=== PATIENT | female | born 1955 | race Caucasian/White ===

== ENCOUNTER 2020-02-25 00:02 | Inpatient (IN) | payer BC, OTHER ==
[2020-02-25] MEDS ORDERED: Sodium Chloride 0.9% 10 ML Syringe FLUSH PRN (00:16)
[2020-02-25] MEDS ORDERED: Iopamidol 612 MG/ML 150 ML Bottle IV STA (00:40)
--- NOTE | 2020-02-25 00:40 | EDM.PDOC ---
ED HPI GENERAL MEDICAL PROBLEM - General Chief Complaint: Cardiovascular Problem Stated Complaint: MEDICAL [facility] Time Seen by Provider: 02/25/20 00:09 Source of Information: Reports: Patient History Limitations: Reports: No Limitations - History of Present Illness INITIAL COMMENTS - FREE TEXT/NARRATIVE: Patient presents by ambulance from home after falling due to being weak and off balance. Based on symptoms, her father, who lives at home with her called the ambulance tonight after she fell. On arrival paramedics noted that her blood pressure was in the high 70s systolic range and she seemed sleepy. She does not provide much useful history for her condition tonight although clinic notes from a visit to [facility] yesterday indicate that she is a pparently being treated for a UTI and she just had antibiotics changed from Augmentin to Cipro. For some reason not evident in the notes, the provider wanted to do a CT scan of some part of her body but there was a question of insurance coverage for it. The patient denies pain at this time but responses to all questions are slow. She took her tizanidine at bedtime tonight. Normal saline is running wide open on arrival and an additional IV site will be established and additional fluid bolus added. Onset: Gradual Location: Reports: Generalized Severity: Severe Improves with: Reports: None Worsens with: Reports: None Associated Symptoms: Reports: Confusion, Diaphoresis, Weakness. Denies: Fever/Chills, Nausea/Vomiting denies pain Pain Score (Numeric/FACES): 0 - Related Data Allergies Allergy/AdvReac Type Severity Reaction Status Date / Time Sulfa (Sulfonamide Allergy Hives Verified 02/25/20 00:22 Antibiotics) Home Meds: Home Meds Amitriptyline HCl 50 mg PO DAILY 07/04/13 [History] DULoxetine HCl [Cymbalta] 60 mg PO DAILY 07/04/13 [History] Meloxicam 15 mg PO DAILY 07/04/13 [History] metFORMIN HCl [Metformin HCl] 1,000 mg PO BID 07/04/13 [History] Aspirin [Adult Low Dose Aspirin EC] 81 mg PO DAILY 02/25/20 [History] Dulaglutide [Trulicity] 0.5 ml SQ WEEKLY 02/25/20 [History] FLUoxetine HCl [Prozac] 20 mg PO DAILY 02/25/20 [History] Famotidine 20 mg PO DAILY 02/25/20 [History] Losartan Potassium 100 mg PO DAILY 02/25/20 [History] Simvastatin [Zocor] 10 mg PO BEDTIME 02/25/20 [History] glipiZIDE [Glipizide ER] 10 mg PO DAILY 02/25/20 [History] ED ROS GENERAL - Review of Systems Review Of Systems: See Below Constitutional: Reports: Weakness, Diaphoresis. Denies: Fever HEENT: Reports: No Symptoms Respiratory: Reports: No Symptoms Cardiovascular: Reports: No Symptoms : Reports: No Symptoms Musculoskeletal: Reports: No Symptoms ED EXAM, GENERAL - Physical Exam Exam: See Below Exam Limited By: Altered Mental Status General Appearance: Obtunded Nose: Normal Inspection Throat/Mouth: Normal Inspection Head: Atraumatic Neck: Supple, Non-Tender Respiratory/Chest: Lungs Clear Cardiovascular: Regular Rate, Rhythm GI/Abdominal: Soft, Tender (Minor right abdominal tenderness on palpation.). No: Distended, Guarding, Rigid Neurological: Slow to Respond EKG INTERPRETATION EKG Date: 02/25/20 Time: 00:33 Rhythm: NSR Rate (Beats/Min): 85 [place]: Normal P-Wave: Present QRS: Normal ST-T: Normal QT: Normal Comparison: NA - No Prior EKG Course - Vital Signs Last Recorded V/S: Last Vital Signs Temp 35.0 C L 02/25/20 01:41 Pulse 91 02/25/20 02:13 Resp 16 02/25/20 02:13 BP 97/55 L 02/25/20 02:13 Pulse Ox 96 02/25/20 02:13 - Orders/Labs/Meds Orders: Active Orders 24 hr Category Date Time Status EKG Documentation Completion [RC] ASDIRECTED Care 02/25/20 00:19 Active CULTURE BLOOD [BC] Stat Lab 02/25/20 01:27 Ordered Ciprofloxacin in D5W [Cipro in D5W 400 MG/200 ML] 400 Med 02/25/20 02:04 Ordered mg Premix Bag 1 bag IV ONETIME Norepinephrine [Levophed] 4 mg Med 02/25/20 01:30 Active Dextrose 5% in Water 246 ml IV TITRATE Sodium Chloride 0.9% [Normal Saline] 1,000 ml Med 02/25/20 01:04 Ordered IV .BOLUS Sodium Chloride 0.9% [Saline Flush] Med 02/25/20 00:16 Active 10 ml FLUSH ASDIRECTED PRN Saline Lock Insert [OM.PC] Routine Oth 02/25/20 00:16 Ordered EKG 12 Lead [EK] Routine Ther 02/25/20 00:16 Ordered Medication Orders Sodium Chloride (Normal Saline) 1,000 mls @ 500 mls/hr IV .BOLUS ONE Stop: 02/25/20 03:03 Last Admin: 02/25/20 01:12 Dose: 500 mls/hr Documented by: KIMBERLY Norepinephrine Bitartrate 4 mg (/ Dextrose/Water) 250 mls @ 7.5 mls/hr IV TITRATE ANAND; Protocol Last Admin: 02/25/20 01:31 Dose: 2 mcg/min, 7.5 mls/hr Documented by: SHI Ciprofloxacin/Dextrose 400 mg/ (Premix) 200 mls @ 200 mls/hr IV ONETIME ONE Stop: 02/25/20 03:03 Last Admin: 02/25/20 02:19 Dose: 200 mls/hr Documented by: Sodium Chloride (Saline Flush) 10 ml FLUSH ASDIRECTED PRN PRN Reason: Keep Vein Open Last Admin: 02/25/20 00:36 Dose: 10 ml Documented by: SHI Labs: Laboratory Tests 02/25/20 02/25/20 02/25/20 Range/Units 00:16 00:29 00:30 WBC 16.1 H (4.5-11.0) K/uL RBC 3.59 (3.30-5.50) M/uL Hgb 10.6 L D (12.0-15.0) g/dL Hct 30.9 L (36.0-48.0) % MCV 86 (80-98) fL MCH 30 (27-31) pg MCHC 34 (32-36) % Plt Count 223 (150-400) K/uL Neut % (Auto) 84 H (36-66) % Lymph % (Auto) 4 L (24-44) % [place] % (Auto) 11 H (2-6) % Eos % (Auto) 0 L (2-4) % Baso % (Auto) 0 (0-1) % Sodium 125 L (140-148) mmol/L Potassium 4.8 (3.6-5.2) mmol/L Chloride 94 L (100-108) mmol/L Carbon Dioxide 19 L (21-32) mmol/L Anion Gap 16.8 H (5.0-14.0) mmol/L BUN 22 H (7-18) mg/dL Creatinine 1.4 H D (0.6-1.0) mg/dL Est Cr Clr Drug Dosing 40.52 mL/min Estimated GFR (MDRD) 38 L (>60) Glucose 437 H* (74-106) mg/dL Lactic Acid (0.4-2.0) mmol/L Calcium 8.4 L (8.5-10.1) mg/dL Total Bilirubin 0.7 D (0.2-1.0) mg/dL AST 8 L (15-37) U/L ALT 8 L (12-78) U/L Alkaline Phosphatase 89 (46-116) U/L Troponin I < 0.017 (0.000-0.056) ng/mL C-Reactive Protein > 25.00 H (0.0-0.3) mg/dL Total Protein 5.8 L (6.4-8.2) g/dL Albumin 2.1 L (3.4-5.0) g/dL Globulin 3.7 H (2.3-3.5) g/dL Albumin/Globulin Ratio 0.6 L (1.2-2.2) Urine Color Yellow (YELLOW) Urine Appearance Clear (CLEAR) Urine pH 5.5 (5.0-8.0) Ur Specific [place] 1.015 (1.008-1.030) Urine Protein 100 H (NEGATIVE) mg/dL Urine Glucose (UA) 500 H (NEGATIVE) mg/dL Urine Ketones 80 H (NEGATIVE) mg/dL Urine Occult Blood Moderate H (NEGATIVE) Urine Nitrite Negative (NEGATIVE) Urine Bilirubin Small H (NEGATIVE) Urine Urobilinogen 0.2 (0.2-1.0) EU/dL Ur Leukocyte Esterase Small H (NEGATIVE) Urine RBC 0-5 (0-5) Urine WBC Not seen (0-5) Ur Epithelial Cells Rare Amorphous Sediment Rare Urine Bacteria Not seen Urine Mucus Not seen Urine Opiates Screen (NEGATIVE) Ur Oxycodone Screen (NEGATIVE) Urine Methadone Screen (NEGATIVE) Ur Propoxyphene Screen (NEGATIVE) Ur Barbiturates Screen (NEGATIVE) Ur Tricyclics Screen (NEGATIVE) Ur Phencyclidine Scrn (NEGATIVE) Ur Amphetamine Screen (NEGATIVE) U Methamphetamines Scrn (NEGATIVE) Urine MDMA Screen (NEGATIVE) U Benzodiazepines Scrn (NEGATIVE) U Cocaine Metab Screen (NEGATIVE) U Marijuana (THC) Screen (NEGATIVE) 02/25/20 02/25/20 Range/Units 00:30 00:30 WBC (4.5-11.0) K/uL RBC (3.30-5.50) M/uL Hgb (12.0-15.0) g/dL Hct (36.0-48.0) % MCV (80-98) fL MCH (27-31) pg MCHC (32-36) % Plt Count (150-400) K/uL Neut % (Auto) (36-66) % Lymph % (Auto) (24-44) % [place] % (Auto) (2-6) % Eos % (Auto) (2-4) % Baso % (Auto) (0-1) % Sodium (140-148) mmol/L Potassium (3.6-5.2) mmol/L Chloride (100-108) mmol/L Carbon Dioxide (21-32) mmol/L Anion Gap (5.0-14.0) mmol/L BUN (7-18) mg/dL Creatinine (0.6-1.0) mg/dL Est Cr Clr Drug Dosing mL/min Estimated GFR (MDRD) (>60) Glucose (74-106) mg/dL Lactic Acid 1.6 (0.4-2.0) mmol/L Calcium (8.5-10.1) mg/dL Total Bilirubin (0.2-1.0) mg/dL AST (15-37) U/L ALT (12-78) U/L Alkaline Phosphatase (46-116) U/L Troponin I (0.000-0.056) ng/mL C-Reactive Protein (0.0-0.3) mg/dL Total Protein (6.4-8.2) g/dL Albumin (3.4-5.0) g/dL Globulin (2.3-3.5) g/dL Albumin/Globulin Ratio (1.2-2.2) Urine Color (YELLOW) Urine Appearance (CLEAR) Urine pH (5.0-8.0) Ur Specific [place] (1.008-1.030) Urine Protein (NEGATIVE) mg/dL Urine Glucose (UA) (NEGATIVE) mg/dL Urine Ketones (NEGATIVE) mg/dL Urine Occult Blood (NEGATIVE) Urine Nitrite (NEGATIVE) Urine Bilirubin (NEGATIVE) Urine Urobilinogen (0.2-1.0) EU/dL Ur Leukocyte Esterase (NEGATIVE) Urine RBC (0-5) Urine WBC (0-5) Ur Epithelial Cells Amorphous Sediment Urine Bacteria Urine Mucus Urine Opiates Screen Negative (NEGATIVE) Ur Oxycodone Screen Negative (NEGATIVE) Urine Methadone Screen Negative (NEGATIVE) Ur Propoxyphene Screen Negative (NEGATIVE) Ur Barbiturates Screen Negative (NEGATIVE) Ur Tricyclics Screen Presumptive positive H (NEGATIVE) Ur Phencyclidine Scrn Negative (NEGATIVE) Ur Amphetamine Screen Presumptive positive H (NEGATIVE) U Methamphetamines Scrn Negative (NEGATIVE) Urine MDMA Screen Negative (NEGATIVE) U Benzodiazepines Scrn Negative (NEGATIVE) U Cocaine Metab Screen Negative (NEGATIVE) U Marijuana (THC) Screen Negative (NEGATIVE) Meds: Medications Generic Name Dose Route Start Last Admin Trade Name Freq PRN Reason Stop Dose Admin Sodium Chloride 1,000 mls @ 500 mls/hr 02/25/20 01:04 02/25/20 01:12 Normal Saline IV 02/25/20 03:03 500 mls/hr .BOLUS ONE Administration Norepinephrine Bitartrate 4 mg 250 mls @ 7.5 mls/hr 02/25/20 01:30 02/25/20 01:31 / Dextrose/Water IV 2 mcg/min TITRATE ANAND 7.5 mls/hr Administration Protocol 2 MCG/MIN Ciprofloxacin/Dextrose 400 mg/ 200 mls @ 200 mls/hr 02/25/20 02:04 02/25/20 02:19 Premix IV 02/25/20 03:03 200 mls/hr ONETIME ONE Administration Sodium Chloride 10 ml 02/25/20 00:16 02/25/20 00:36 Saline Flush FLUSH 10 ml ASDIRECTED PRN Administration Keep Vein Open Discontinued Medications Generic Name Dose Route Start Last Admin Trade Name Freq PRN Reason Stop Dose Admin Norepinephrine Bitartrate 8 mg 258 mls @ 3.87 mls/hr 02/25/20 01:30 / Dextrose/Water IV TITRATE ANAND Protocol 2 MCG/MIN Insulin Human Regular 10 unit 02/25/20 01:28 02/25/20 01:38 Humulin R IVPUSH 02/25/20 01:29 10 units ONETIME ONE Administration Iopamidol 150 ml 02/25/20 00:40 02/25/20 00:48 Isovue-300 (61%) IV 02/25/20 00:41 150 ml . DIRECTED STA Administration - Re-Assessments/Exams Free Text/Narrative Re-Assessment/Exam: 02/25/20 00:39 It is not clear at this time what is causing her collection of symptoms. We have lab tests from [facility] yesterday. In the visit, a reason for visit involved abdominal pain back pain and generalized malaise. This could be sepsis. It could be some sort of intra-abdominal or intrathoracic phenomenon. 02/25/20 01:34 The patient continues to be somnolent but will answer questions with a 1 or 2 word answer. On re-examination now she seems to describe some right-sided abdominal discomfort although her pain response is not very noticeable. Blood pressure has decreased again into the upper 80s systolic range. We will initiate norepinephrine and continue fluid replacement. Her glucose is over 400 and she will be given 10 units of regular insulin IV. Blood cultures will be obtained. Despite her blood pressure being at its level, her heart rate has never consistently gone above the low to mid 80s. Additionally it is noted that her sodium is 125. 02/25/20 01:38 02/25/20 02:48 Norepinephrine was initiated and her systolic pressure quickly vira to 110 mmHg. After 15 minutes, we stopped the norepinephrine and pressure decreased into the high 90s systolic however the mean arterial pressure was still acceptable. The patient is slightly more alert now than at the beginning of our visit. When asked, the patient stated that she thought her somnolence was from her nighttime medications but does not specify if she took extra medications or not. CT scan was largely unremarkable except for some stranding around the proximal right ureter and kidney suggesting early pyelonephritis. No other alarming findings were found in the chest, abdomen, pelvis. Cipro 400 mg IV will be administered. The patient will be admitted here for further care. 02/25/20 02:51 Departure - Departure Time of Disposition: 02:50 Disposition: Admitted As Inpatient 68 Clinical Impression: Hyponatremia, Somnolence UTI (urinary tract infection) Qualifiers: Urinary tract infection type: acute cystitis Hematuria presence: without hematuria Qualified Code(s): N30.00 - Acute cystitis without hematuria Diabetes mellitus with hyperglycemia Qualifiers: Diabetes mellitus type: type 2 Diabetes mellitus termite treater insulin use: without termite treater use Qualified Code(s): E11.65 - Type 2 diabetes mellitus with hyperglycemia Hypotension Qualifiers: Hypotension type: unspecified hypotension type Qualified Code(s): I95.9 - Hypotension, unspecified Referrals: PCP,None [Primary Care Provider] - Forms: ED Department Discharge Sepsis Event Note (ED) - Evaluation Sepsis Screening Result: No Definite Risk - Focused Exam Vital Signs: Vital Signs Temp Pulse Resp BP Pulse Ox 02/25/20 02:13 91 16 97/55 L 96 02/25/20 01:41 35.0 C L 85 19 94/57 L 98 02/25/20 00:58 35.6 C L 82 15 97/58 L 95 02/25/20 00:42 83 18 85/51 L 96 02/25/20 00:29 85 19 90/54 L 98 02/25/20 00:14 35.7 C L 88 22 H 80/51 L 98 02/25/20 00:09 35.7 C L 92 79/46 L 98 02/25/20 00:05 93 15 79/46 L 98 - My Orders Last 24 Hours: My Active Orders 02/25/20 00:16 Sodium Chloride 0.9% [Saline Flush] 10 ml FLUSH ASDIRECTED PRN Saline Lock Insert [OM.PC] Routine EKG 12 Lead [EK] Routine 02/25/20 00:19 EKG Documentation Completion [RC] ASDIRECTED 02/25/20 01:04 Sodium Chloride 0.9% [Normal Saline] 1,000 ml IV .BOLUS 02/25/20 01:27 CULTURE BLOOD [BC] Stat 02/25/20 01:30 Norepinephrine [Levophed] 4 mg Dextrose 5% in Water 246 ml IV TITRATE 02/25/20 02:04 Ciprofloxacin in D5W [Cipro in D5W 400 MG/200 ML] 400 mg Premix Bag 1 bag IV ONETIME - Assessment/Plan Last 24 Hours: My Active Orders 02/25/20 00:16 Sodium Chloride 0.9% [Saline Flush] 10 ml FLUSH ASDIRECTED PRN Saline Lock Insert [OM.PC] Routine EKG 12 Lead [EK] Routine 02/25/20 00:19 EKG Documentation Completion [RC] ASDIRECTED 02/25/20 01:04 Sodium Chloride 0.9% [Normal Saline] 1,000 ml IV .BOLUS 02/25/20 01:27 CULTURE BLOOD [BC] Stat 02/25/20 01:30 Norepinephrine [Levophed] 4 mg Dextrose 5% in Water 246 ml IV TITRATE 02/25/20 02:04 Ciprofloxacin in D5W [Cipro in D5W 400 MG/200 ML] 400 mg Premix Bag 1 bag IV ONETIME
[2020-02-25] MEDS ORDERED: Sodium Chloride 0.9% 1,000 ML IV ONE (01:04)
[2020-02-25] MEDS ORDERED: Insulin Regular, Human 100 Units/ML 3 ML Vial IVPUSH ONE (01:28)
[2020-02-25] MEDS ORDERED: Norepinephrine 8 MG in Dextrose 5% in Water 250 ML IV SCH ×2 (01:30)
[2020-02-25] MEDS ORDERED: Norepinephrine 4 MG in Dextrose 5% in Water 246 ML IV SCH ×2 (01:30)
--- NOTE | 2020-02-25 01:44 | CRLCT ---
INDICATION: Hypotensive, obtunded. TECHNIQUE: CT chest, abdomen and pelvis acquired with 150 cc Isovue-300 intravenous contrast. COMPARISON: Abdomen and pelvis CT 07/04/2013 FINDINGS: CHEST: Mediastinum and beatriz: Thyroid unremarkable. Thoracic aorta normal in caliber with mild atherosclerotic calcification. Trace pericardial fluid. No enlarged mediastinal lymph nodes. Lungs and pleura: No pleural effusion or pneumothorax. Minimal dependent atelectasis. Chest wall and axilla: No mass or adenopathy. Bones: No suspicious bone lesions. Unremarkable for age. ABDOMEN AND PELVIS: Liver: Normal in contour with focal fat adjacent to the falciform ligament. Gallbladder and bile ducts: Unremarkable. Pancreas: Unremarkable. Spleen: Unremarkable. Adrenal glands: Unremarkable. Kidneys: Symmetric renal enhancement with some urothelial thickening questioned bilaterally as well as mild fat stranding surrounding the right ureter (2, 138). GI tract: The stomach is unremarkable. No dilated loops of large or small intestine. Vascular structures: Unremarkable. Pelvic Organs: Status post hysterectomy. Bladder minimally distended. Bones: No suspicious bone lesions. Unremarkable for age. IMPRESSION: 1. Bilateral urothelial thickening with some fat stranding surrounding the right ureter. This is nonspecific but can be seen in infection/ureteritis. 2. No dilated loops of large or small intestine. 3. No acute thoracic process seen. Please note that all CT scans at this facility use dose modulation, iterative reconstruction, and/or weight-based dosing when appropriate to reduce radiation dose to as low as reasonably achievable. Dictated by Bill Ott MD @ Feb 25 2020 1:31AM Signed by Dr. Bill Ott @ Feb 25 2020 1:43AM
[2020-02-25] MEDS ORDERED: Ciprofloxacin in D5W 400 MG in Premix Bag 1 BAG IV ONE ×2 (02:04)
--- NOTE | 2020-02-25 03:07 | PCM.HP.2 ---
H&P History of Present Illness - General Date of Service: 02/25/20 Admit Problem/Dx: Admission Diagnosis/Problem Admission Diagnosis/Problem Pyelonephritis Source of Information: Patient, EMS Notes Reviewed, Old Records, Provider, RN History Limitations: Reports: Altered Mental Status - History of Present Illness Initial Comments - Free Text/Narative: chief complaint: weakness, fall at home. This is a 64 year old female present to the ER via EMS for fall at home and weak ness. She was found to have a low blood pressure with a systolic blood pressure of 70's. and very weak and lethargic. Mrs. Remington colbert has been sick with a bladder infection for the past few days. filemon has been taking her medications. last meal at noon. reports lives with her and Dad in [facility]. Onset of Symptoms: Reports: Gradual Duration of Symptoms: Reports: Day(s): Location: Reports: Generalized (weakness) Severity: Severe Improves with: Reports: None Worsens with: Reports: None Context: Reports: Other (currently has a urinary tract infection) Associated Symptoms: Reports: Loss of Appetite (last meal at noon on 02-24-2020), Malaise, Weakness (fall at home ) denies pain Pain Score (Numeric/FACES): 0 - Related Data Allergies/Adverse Reactions: Allergies Allergy/AdvReac Type Severity Reaction Status Date / Time Sulfa (Sulfonamide Allergy Hives Verified 02/25/20 00:22 Antibiotics) Home Medications: Home Meds Amitriptyline HCl 50 mg PO BEDTIME 07/04/13 [History] DULoxetine HCl [Cymbalta] 60 mg PO BEDTIME 07/04/13 [History] Meloxicam 15 mg PO DAILY 07/04/13 [History] metFORMIN HCl [Metformin HCl] 1,000 mg PO BID 07/04/13 [History] Aspirin [Adult Low Dose Aspirin EC] 81 mg PO DAILY 02/25/20 [History] Dulaglutide [Trulicity] 0.5 ml SQ WEEKLY 02/25/20 [History] FLUoxetine HCl [Prozac] 20 mg PO DAILY 02/25/20 [History] Famotidine 20 mg PO DAILY 02/25/20 [History] Losartan Potassium 100 mg PO DAILY 02/25/20 [History] Simvastatin [Zocor] 10 mg PO BEDTIME 02/25/20 [History] glipiZIDE [Glipizide ER] 10 mg PO DAILY 02/25/20 [History] Past Medical History HEENT History: Reports: Impaired Vision, Other (See Below) Other HEENT History: glasses Cardiovascular History: Reports: Hypertension Genitourinary History: Reports: UTI, Recurrent INSERTER History: Reports: Endocrine/Metabolic History: Reports: Diabetes, Type II, Obesity/BMI 30+ - Infectious Disease History Infectious Disease History: Reports: Measles - Past Surgical History Female Surgical History: Reports: Section, Hysterectomy Social & Family History - Tobacco Use Smoking Status *Q: Never Smoker - Caffeine Use Caffeine Use: Reports: Soda - Recreational Drug Use Recreational Drug Use: No - Living Situation & Occupation Living situation: Reports: (lives with and Dad in [facility]) H&P Review of Systems - Review of Systems: Review Of Systems: See Below General: Reports: Weakness, Fatigue HEENT: Reports: Glasses Pulmonary: Reports: No Symptoms Cardiovascular: Reports: No Symptoms Gastrointestinal: Reports: No Symptoms Genitourinary: Reports: No Symptoms Musculoskeletal: Reports: Back Pain Skin: Reports: Lesions (red dry circular rash noted to upper back) Psychiatric: Reports: No Symptoms Neurological: Reports: Weakness Hematologic/Lymphatic: Reports: No Symptoms Immunologic: Reports: No Symptoms Exam - Exam Exam: See Below - Vital Signs Vital Signs: Last Vital Signs Temp 35.0 C L 02/25/20 01:41 Pulse 91 02/25/20 02:13 Resp 16 02/25/20 02:13 BP 97/55 L 02/25/20 02:13 Pulse Ox 96 02/25/20 02:13 Weight: 90.718 kg - Exam Quality Assessment: DVT Prophylaxis, Skin Breakdown General: Cooperative, Mild Distress, Sedated HEENT: PERRLA, Conjunctiva Clear, Hearing Intact, Glasses, Other (mouth and tongue is dry) Neck: Supple, Trachea Midline Lungs: Clear to Auscultation, Normal Respiratory Effort Cardiovascular: Regular Rate, Regular Rhythm, Normal S1, Normal S2 GI/Abdominal Exam: Normal Bowel Sounds, Soft, Non-Tender, No Distention (Female) Exam: Deferred Rectal (Female) Exam: Deferred Back Exam: Full Range of Motion, Other (low back pain, rash noted to upper back) Extremities: Normal Inspection, Normal Range of Motion, Normal Capillary Refill Skin: Warm, Dry, Intact, Rash (upper back-dry circular lesions noted. no discharger) Neurological: Reflexes Equal Bilateral, Strength Equal Bilateral, Normal Speech Neuro Extensive - Mental Status: Alert, Oriented x3 Psychiatric: Other (awakens to name and gentle shake of shoulder. appear tired) Physical Exam Comments:: 64 year old female appears older than stated age. frail - Patient Data Lab Results Last 24 hrs: Laboratory Results - last 24 hr 02/25/20 02/25/20 02/25/20 Range/Units 00:16 00:29 00:30 WBC 16.1 H (4.5-11.0) K/uL RBC 3.59 (3.30-5.50) M/uL Hgb 10.6 L D (12.0-15.0) g/dL Hct 30.9 L (36.0-48.0) % MCV 86 (80-98) fL MCH 30 (27-31) pg MCHC 34 (32-36) % Plt Count 223 (150-400) K/uL Neut % (Auto) 84 H (36-66) % Lymph % (Auto) 4 L (24-44) % [place] % (Auto) 11 H (2-6) % Eos % (Auto) 0 L (2-4) % Baso % (Auto) 0 (0-1) % Sodium 125 L (140-148) mmol/L Potassium 4.8 (3.6-5.2) mmol/L Chloride 94 L (100-108) mmol/L Carbon Dioxide 19 L (21-32) mmol/L Anion Gap 16.8 H (5.0-14.0) mmol/L BUN 22 H (7-18) mg/dL Creatinine 1.4 H D (0.6-1.0) mg/dL Est Cr Clr Drug Dosing 40.52 mL/min Estimated GFR (MDRD) 38 L (>60) Glucose 437 H* (74-106) mg/dL Lactic Acid (0.4-2.0) mmol/L Calcium 8.4 L (8.5-10.1) mg/dL Total Bilirubin 0.7 D (0.2-1.0) mg/dL AST 8 L (15-37) U/L ALT 8 L (12-78) U/L Alkaline Phosphatase 89 (46-116) U/L Troponin I < 0.017 (0.000-0.056) ng/mL C-Reactive Protein > 25.00 H (0.0-0.3) mg/dL Total Protein 5.8 L (6.4-8.2) g/dL Albumin 2.1 L (3.4-5.0) g/dL Globulin 3.7 H (2.3-3.5) g/dL Albumin/Globulin Ratio 0.6 L (1.2-2.2) Urine Color Yellow (YELLOW) Urine Appearance Clear (CLEAR) Urine pH 5.5 (5.0-8.0) Ur Specific [place] 1.015 (1.008-1.030) Urine Protein 100 H (NEGATIVE) mg/dL Urine Glucose (UA) 500 H (NEGATIVE) mg/dL Urine Ketones 80 H (NEGATIVE) mg/dL Urine Occult Blood Moderate H (NEGATIVE) Urine Nitrite Negative (NEGATIVE) Urine Bilirubin Small H (NEGATIVE) Urine Urobilinogen 0.2 (0.2-1.0) EU/dL Ur Leukocyte Esterase Small H (NEGATIVE) Urine RBC 0-5 (0-5) Urine WBC Not seen (0-5) Ur Epithelial Cells Rare Amorphous Sediment Rare Urine Bacteria Not seen Urine Mucus Not seen Urine Opiates Screen (NEGATIVE) Ur Oxycodone Screen (NEGATIVE) Urine Methadone Screen (NEGATIVE) Ur Propoxyphene Screen (NEGATIVE) Ur Barbiturates Screen (NEGATIVE) Ur Tricyclics Screen (NEGATIVE) Ur Phencyclidine Scrn (NEGATIVE) Ur Amphetamine Screen (NEGATIVE) U Methamphetamines Scrn (NEGATIVE) Urine MDMA Screen (NEGATIVE) U Benzodiazepines Scrn (NEGATIVE) U Cocaine Metab Screen (NEGATIVE) U Marijuana (THC) Screen (NEGATIVE) 02/25/20 02/25/20 Range/Units 00:30 00:30 WBC (4.5-11.0) K/uL RBC (3.30-5.50) M/uL Hgb (12.0-15.0) g/dL Hct (36.0-48.0) % MCV (80-98) fL MCH (27-31) pg MCHC (32-36) % Plt Count (150-400) K/uL Neut % (Auto) (36-66) % Lymph % (Auto) (24-44) % [place] % (Auto) (2-6) % Eos % (Auto) (2-4) % Baso % (Auto) (0-1) % Sodium (140-148) mmol/L Potassium (3.6-5.2) mmol/L Chloride (100-108) mmol/L Carbon Dioxide (21-32) mmol/L Anion Gap (5.0-14.0) mmol/L BUN (7-18) mg/dL Creatinine (0.6-1.0) mg/dL Est Cr Clr Drug Dosing mL/min Estimated GFR (MDRD) (>60) Glucose (74-106) mg/dL Lactic Acid 1.6 (0.4-2.0) mmol/L Calcium (8.5-10.1) mg/dL Total Bilirubin (0.2-1.0) mg/dL AST (15-37) U/L ALT (12-78) U/L Alkaline Phosphatase (46-116) U/L Troponin I (0.000-0.056) ng/mL C-Reactive Protein (0.0-0.3) mg/dL Total Protein (6.4-8.2) g/dL Albumin (3.4-5.0) g/dL Globulin (2.3-3.5) g/dL Albumin/Globulin Ratio (1.2-2.2) Urine Color (YELLOW) Urine Appearance (CLEAR) Urine pH (5.0-8.0) Ur Specific [place] (1.008-1.030) Urine Protein (NEGATIVE) mg/dL Urine Glucose (UA) (NEGATIVE) mg/dL Urine Ketones (NEGATIVE) mg/dL Urine Occult Blood (NEGATIVE) Urine Nitrite (NEGATIVE) Urine Bilirubin (NEGATIVE) Urine Urobilinogen (0.2-1.0) EU/dL Ur Leukocyte Esterase (NEGATIVE) Urine RBC (0-5) Urine WBC (0-5) Ur Epithelial Cells Amorphous Sediment Urine Bacteria Urine Mucus Urine Opiates Screen Negative (NEGATIVE) Ur Oxycodone Screen Negative (NEGATIVE) Urine Methadone Screen Negative (NEGATIVE) Ur Propoxyphene Screen Negative (NEGATIVE) Ur Barbiturates Screen Negative (NEGATIVE) Ur Tricyclics Screen Presumptive positive H (NEGATIVE) Ur Phencyclidine Scrn Negative (NEGATIVE) Ur Amphetamine Screen Presumptive positive H (NEGATIVE) U Methamphetamines Scrn Negative (NEGATIVE) Urine MDMA Screen Negative (NEGATIVE) U Benzodiazepines Scrn Negative (NEGATIVE) U Cocaine Metab Screen Negative (NEGATIVE) U Marijuana (THC) Screen Negative (NEGATIVE) Result Diagrams: 02/25/20 00:16 02/25/20 00:29 Sepsis Event Note - Evaluation Sepsis Screening Result: No Definite Risk - Focused Exam Vital Signs: Vital Signs Temp Pulse Resp BP Pulse Ox 02/25/20 02:13 91 16 97/55 L 96 02/25/20 01:41 35.0 C L 85 19 94/57 L 98 02/25/20 00:58 35.6 C L 82 15 97/58 L 95 02/25/20 00:42 83 18 85/51 L 96 02/25/20 00:29 85 19 90/54 L 98 02/25/20 00:14 35.7 C L 88 22 H 80/51 L 98 02/25/20 00:09 35.7 C L 92 79/46 L 98 02/25/20 00:05 93 15 79/46 L 98 - Problem List (1) UTI (urinary tract infection) SNOMED Code(s): 25169839 ICD Code: N39.0 - URINARY TRACT INFECTION, SITE NOT SPECIFIED Status: Acute Priority: High Current Visit: Yes Qualifiers: Urinary tract infection type: acute cystitis Hematuria presence: without hematuria Qualified Code(s): N30.00 - Acute cystitis without hematuria (2) Pyelonephritis SNOMED Code(s): 99775128 ICD Code: N12 - TUBULO-INTERSTITIAL NEPHRITIS, NOT SPCF ACUTE OR CHRONIC Status: Acute Priority: High Current Visit: Yes (3) Diabetes mellitus with hyperglycemia SNOMED Code(s): 84775241, 877457075 ICD Code: E11.65 - TYPE 2 DIABETES MELLITUS WITH HYPERGLYCEMIA Status: Acute Priority: High Current Visit: Yes Qualifiers: Diabetes mellitus type: type 2 Diabetes mellitus financial services education consultant insulin use: without financial services education consultant use Qualified Code(s): E11.65 - Type 2 diabetes mellitus with hyperglycemia (4) Hyponatremia SNOMED Code(s): 93268222 ICD Code: E87.1 - HYPO-OSMOLALITY AND HYPONATREMIA Status: Acute Priority: High Current Visit: Yes Problem List Initiated/Reviewed/Updated: Yes Orders Last 24hrs: Active Orders 24 hr Category Date Time Status Patient Status Manage Transfer [TRANSFER] Routine ADT 02/25/20 02:54 Active EKG Documentation Completion [RC] ASDIRECTED Care 02/25/20 00:19 Active CULTURE BLOOD [BC] Stat Lab 02/25/20 01:30 Received Ciprofloxacin in D5W [Cipro in D5W 400 MG/200 ML] 400 Med 02/25/20 02:04 Active mg Premix Bag 1 bag IV ONETIME Norepinephrine [Levophed] 4 mg Med 02/25/20 01:30 Active Dextrose 5% in Water 246 ml IV TITRATE Sodium Chloride 0.9% [Normal Saline] 1,000 ml Med 02/25/20 01:04 Active IV .BOLUS Sodium Chloride 0.9% [Saline Flush] Med 02/25/20 00:16 Active 10 ml FLUSH ASDIRECTED PRN Saline Lock Insert [OM.PC] Routine Oth 02/25/20 00:16 Ordered Resuscitation Status Routine Resus Stat 02/25/20 02:55 Ordered EKG 12 Lead [EK] Routine Ther 02/25/20 00:16 Ordered Medication Orders Sodium Chloride (Normal Saline) 1,000 mls @ 500 mls/hr IV .BOLUS ONE Stop: 02/25/20 03:03 Last Admin: 02/25/20 01:12 Dose: 500 mls/hr Documented by: KIMBERLY Norepinephrine Bitartrate 4 mg (/ Dextrose/Water) 250 mls @ 7.5 mls/hr IV TITRATE ANAND; Protocol Last Admin: 02/25/20 01:31 Dose: 2 mcg/min, 7.5 mls/hr Documented by: SHI Ciprofloxacin/Dextrose 400 mg/ (Premix) 200 mls @ 200 mls/hr IV ONETIME ONE Stop: 02/25/20 03:03 Last Admin: 02/25/20 02:19 Dose: 200 mls/hr Documented by: SAMMZMEL Sodium Chloride (Saline Flush) 10 ml FLUSH ASDIRECTED PRN PRN Reason: Keep Vein Open Last Admin: 02/25/20 00:36 Dose: 10 ml Documented by: SHI Assessment/Plan Comment:: ASSESSMENT / PLAN Patient presents by ambulance from home after falling due to being weak and off balance. Based on symptoms, her father, who lives at home with her called the ambulance tonight after she fell. On arrival paramedics noted that her blood pressure was in the high 70s systolic range and she seemed sleepy. She does not provide much useful history for her condition tonight although clinic notes from a visit to [facility] yesterday indicate that she is apparently being treated for a UTI and she just had antibiotics changed from Augmentin to Cipro. For some reason not evident in the notes, the provider wanted to do a CT scan of some part of her body but there was a question of insurance coverage for it. The patient denies pain at this time but responses to all questions are slow. She took her tizanidine at bedtime tonight. Normal saline is running wide open on arrival and an additional IV site will be established and additional fluid bolus added. ER Course It is not clear at this time what is causing her collection of symptoms. We have lab tests from [facility] yesterday. In the visit, a reason for visit involved abdominal pain back pain and generalized malaise. This could be sepsis. It could be some sort of intra-abdominal or intrathoracic phenomenon. 02/25/20 01:34 The patient continues to be somnolent but will answer questions with a 1 or 2 word answer. On re-examination now she seems to describe some right-sided abdominal discomfort although her pain response is not very noticeable. Blood pressure has decreased again into the upper 80s systolic range. We will initiate norepinephrine and continue fluid replacement. Her glucose is over 400 and she will be given 10 units of regular insulin IV. Blood cultures will be obtained. Despite her blood pressure being at its level, her heart rate has never consistently gone above the low to mid 80s. Additionally it is noted that her sodium is 125. 02/25/20 02:48 Norepinephrine was initiated and her systolic pressure quickly vira to 110 mmHg. After 15 minutes, we stopped the norepinephrine and pressure decreased into the high 90s systolic however the mean arterial pressure was still acceptable. The patient is slightly more alert now than at the beginning of our visit. When asked, the patient stated that she thought her somnolence was from her nighttime medications but does not specify if she took extra medications or not. CT scan was largely unremarkable except for some stranding around the proximal right ureter and kidney suggesting early pyelonephritis. No other alarming findings were found in the chest, abdomen, pelvis. Cipro 400 mg IV will be administered. The patient will be admitted here for further care. URINARY TRACT INFECTION-with early pyelonephritis -Admit to [address] [place] [address] for further monitoring -IV Fluids for rehydration NS 125 mL per hour. -IV Antibiotic; Cipro 400mg IV every 12 hours -Tylenol, Motrin or Oxycodone for pain control -Advise to notify nurses of any fever or worsen pain -blood cultures x2 pending -urine culture pending -And a.m. labs: CBC, BMP Diabetes Type 2- with hyperglycemia, blood glucose 437- given IV regular insulin 10 units. -consistent carb diet -Novolog insulin per medium dose sliding scale coverage -blood glucose monitoring before meals and at bedtime Hyponatremia -IV fluids -BMP in am Maintenance issues -Orders home meds: on hold -Nutrition: consistent carb diet -Rollins catheter not indicated at this time -DVT: Lovenox 40 mg sub cut -PPI; IV Protonix 40mg daily CODE STATUS: FULL Admission status: Admit to [address] [place] [address] Admission justification. This patient will be admitted for inpatient services and is medically appropriate meeting medical necessity for inpatient admission as outlined in my documentation. I reasonably expect the patient will require inpatient services that span. Time over 2 midnights. I reasonably expect this patient to be discharged or transferred within 96 hours after admission to the critical access hospital. Disposition: home Primary care provider- [facility]. Hospitalist: Dr. Robertson - Mortality Measure Prognosis:: Good
[2020-02-25] MEDS ORDERED: LORazepam 2 MG/ML SDV IV PRN (03:39)
[2020-02-25] MEDS ORDERED: Morphine 2 MG/ML SYRINGE IVPUSH PRN (03:39)
[2020-02-25] MEDS ORDERED: Bisacodyl 5 MG Tab PO PRN (03:39)
[2020-02-25] MEDS ORDERED: Sodium Chloride 0.9% 1,000 ML IV SCH (03:39)
[2020-02-25] MEDS ORDERED: oxyCODONE 5 MG Tab PO PRN (03:39)
[2020-02-25] MEDS ORDERED: Albuterol 0.083% 2.5 MG/3 ML Neb Soln NEB PRN (03:39)
[2020-02-25] MEDS ORDERED: Docusate Sodium 100 MG Cap PO PRN (03:39)
[2020-02-25] MEDS ORDERED: Ondansetron 4 MG Tab.DIS PO PRN (03:39)
[2020-02-25] MEDS: Acetaminophen 325 MG Tab PO PRN ×3 (04:17→17:14)
[2020-02-25] MEDS ORDERED: Insulin Lispro 100 Unit/ML 3 ML KwikPen SUBCUT SCH (07:00)
[2020-02-25] MEDS ORDERED: Pantoprazole 40 MG Vial IV SCH (07:30)
[2020-02-25] MEDS ORDERED: Losartan 50 MG Tab PO SCH (09:00)
[2020-02-25] MEDS: Enoxaparin 40 MG/0.4 ML Syringe SUBCUT SCH (09:47)
[2020-02-25] MEDS: glipiZIDE 5 MG Tab.ER PO SCH (09:47)
[2020-02-25] MEDS: FLUoxetine 20 MG Cap PO SCH (09:47)
--- NOTE | 2020-02-25 12:02 | PCM.PN ---
- General Info Date of Service: 02/25/20 Subjective Update: No acute events overnight following admission. Blood pressure has stabilized but does remain on the low side of normal. She is feeling better but still feels weak and fatigued. Still having moderate right flank pain that is worse with any sort of movement. No fever so far. Tolerating antibiotics so far. Labs are essentially stable compared to last night. No nausea or vomiting. Not much of an appetite but did tolerate breakfast. Functional Status: Reports: Pain Controlled - Review of Systems General: Reports: Weakness. Denies: Fever Genitourinary: Reports: Urgency, Flank Pain - Patient Data Vitals - Most Recent: Last Vital Signs Temp 36.9 C 02/25/20 11:29 Pulse 106 H 02/25/20 11:29 Resp 20 02/25/20 11:29 BP 128/63 02/25/20 11:29 Pulse Ox 95 02/25/20 11:29 Weight - Most Recent: 90.718 kg I&O - Last 24 Hours: Intake & Output 02/24/20 02/25/20 02/25/20 22:59 06:59 14:59 Output Total 800 400 Balance -800 -400 Lab Results Last 24 Hours: Laboratory Results - last 24 hr 02/25/20 02/25/20 02/25/20 Range/Units 00:16 00:29 00:30 WBC 16.1 H (4.5-11.0) K/uL RBC 3.59 (3.30-5.50) M/uL Hgb 10.6 L D (12.0-15.0) g/dL Hct 30.9 L (36.0-48.0) % MCV 86 (80-98) fL MCH 30 (27-31) pg MCHC 34 (32-36) % Plt Count 223 (150-400) K/uL Neut % (Auto) 84 H (36-66) % Lymph % (Auto) 4 L (24-44) % [place] % (Auto) 11 H (2-6) % Eos % (Auto) 0 L (2-4) % Baso % (Auto) 0 (0-1) % Sodium 125 L (140-148) mmol/L Potassium 4.8 (3.6-5.2) mmol/L Chloride 94 L (100-108) mmol/L Carbon Dioxide 19 L (21-32) mmol/L Anion Gap 16.8 H (5.0-14.0) mmol/L BUN 22 H (7-18) mg/dL Creatinine 1.4 H D (0.6-1.0) mg/dL Est Cr Clr Drug Dosing 40.52 mL/min Estimated GFR (MDRD) 38 L (>60) Glucose 437 H* (74-106) mg/dL POC Glucose (74-106) MG/DL Lactic Acid (0.4-2.0) mmol/L Calcium 8.4 L (8.5-10.1) mg/dL Total Bilirubin 0.7 D (0.2-1.0) mg/dL AST 8 L (15-37) U/L ALT 8 L (12-78) U/L Alkaline Phosphatase 89 (46-116) U/L Troponin I < 0.017 (0.000-0.056) ng/mL C-Reactive Protein > 25.00 H (0.0-0.3) mg/dL Total Protein 5.8 L (6.4-8.2) g/dL Albumin 2.1 L (3.4-5.0) g/dL Globulin 3.7 H (2.3-3.5) g/dL Albumin/Globulin Ratio 0.6 L (1.2-2.2) Urine Color Yellow (YELLOW) Urine Appearance Clear (CLEAR) Urine pH 5.5 (5.0-8.0) Ur Specific [place] 1.015 (1.008-1.030) Urine Protein 100 H (NEGATIVE) mg/dL Urine Glucose (UA) 500 H (NEGATIVE) mg/dL Urine Ketones 80 H (NEGATIVE) mg/dL Urine Occult Blood Moderate H (NEGATIVE) Urine Nitrite Negative (NEGATIVE) Urine Bilirubin Small H (NEGATIVE) Urine Urobilinogen 0.2 (0.2-1.0) EU/dL Ur Leukocyte Esterase Small H (NEGATIVE) Urine RBC 0-5 (0-5) Urine WBC Not seen (0-5) Ur Epithelial Cells Rare Amorphous Sediment Rare Urine Bacteria Not seen Urine Mucus Not seen Urine Opiates Screen (NEGATIVE) Ur Oxycodone Screen (NEGATIVE) Urine Methadone Screen (NEGATIVE) Ur Propoxyphene Screen (NEGATIVE) Ur Barbiturates Screen (NEGATIVE) Ur Tricyclics Screen (NEGATIVE) Ur Phencyclidine Scrn (NEGATIVE) Ur Amphetamine Screen (NEGATIVE) U Methamphetamines Scrn (NEGATIVE) Urine MDMA Screen (NEGATIVE) U Benzodiazepines Scrn (NEGATIVE) U Cocaine Metab Screen (NEGATIVE) U Marijuana (THC) Screen (NEGATIVE) 02/25/20 02/25/20 02/25/20 Range/Units 00:30 00:30 04:29 WBC (4.5-11.0) K/uL RBC (3.30-5.50) M/uL Hgb (12.0-15.0) g/dL Hct (36.0-48.0) % MCV (80-98) fL MCH (27-31) pg MCHC (32-36) % Plt Count (150-400) K/uL Neut % (Auto) (36-66) % Lymph % (Auto) (24-44) % [place] % (Auto) (2-6) % Eos % (Auto) (2-4) % Baso % (Auto) (0-1) % Sodium 129 L (140-148) mmol/L Potassium 4.3 (3.6-5.2) mmol/L Chloride 98 L (100-108) mmol/L Carbon Dioxide 20 L (21-32) mmol/L Anion Gap 15.3 H (5.0-14.0) mmol/L BUN 25 H (7-18) mg/dL Creatinine 1.4 H (0.6-1.0) mg/dL Est Cr Clr Drug Dosing 42.03 mL/min Estimated GFR (MDRD) 38 L (>60) Glucose 394 H (74-106) mg/dL POC Glucose (74-106) MG/DL Lactic Acid 1.6 (0.4-2.0) mmol/L Calcium 8.5 (8.5-10.1) mg/dL Total Bilirubin (0.2-1.0) mg/dL AST (15-37) U/L ALT (12-78) U/L Alkaline Phosphatase (46-116) U/L Troponin I (0.000-0.056) ng/mL C-Reactive Protein (0.0-0.3) mg/dL Total Protein (6.4-8.2) g/dL Albumin (3.4-5.0) g/dL Globulin (2.3-3.5) g/dL Albumin/Globulin Ratio (1.2-2.2) Urine Color (YELLOW) Urine Appearance (CLEAR) Urine pH (5.0-8.0) Ur Specific [place] (1.008-1.030) Urine Protein (NEGATIVE) mg/dL Urine Glucose (UA) (NEGATIVE) mg/dL Urine Ketones (NEGATIVE) mg/dL Urine Occult Blood (NEGATIVE) Urine Nitrite (NEGATIVE) Urine Bilirubin (NEGATIVE) Urine Urobilinogen (0.2-1.0) EU/dL Ur Leukocyte Esterase (NEGATIVE) Urine RBC (0-5) Urine WBC (0-5) Ur Epithelial Cells Amorphous Sediment Urine Bacteria Urine Mucus Urine Opiates Screen Negative (NEGATIVE) Ur Oxycodone Screen Negative (NEGATIVE) Urine Methadone Screen Negative (NEGATIVE) Ur Propoxyphene Screen Negative (NEGATIVE) Ur Barbiturates Screen Negative (NEGATIVE) Ur Tricyclics Screen Presumptive positive H (NEGATIVE) Ur Phencyclidine Scrn Negative (NEGATIVE) Ur Amphetamine Screen Presumptive positive H (NEGATIVE) U Methamphetamines Scrn Negative (NEGATIVE) Urine MDMA Screen Negative (NEGATIVE) U Benzodiazepines Scrn Negative (NEGATIVE) U Cocaine Metab Screen Negative (NEGATIVE) U Marijuana (THC) Screen Negative (NEGATIVE) 02/25/20 02/25/20 02/25/20 Range/Units 04:29 07:30 11:30 WBC 16.1 H (4.5-11.0) K/uL RBC 3.87 (3.30-5.50) M/uL Hgb 11.1 L (12.0-15.0) g/dL Hct 33.2 L (36.0-48.0) % MCV 86 (80-98) fL MCH 29 (27-31) pg MCHC 33 (32-36) % Plt Count 288 (150-400) K/uL Neut % (Auto) 86 H (36-66) % Lymph % (Auto) 5 L (24-44) % [place] % (Auto) 9 H (2-6) % Eos % (Auto) 0 L (2-4) % Baso % (Auto) 0 (0-1) % Sodium (140-148) mmol/L Potassium (3.6-5.2) mmol/L Chloride (100-108) mmol/L Carbon Dioxide (21-32) mmol/L Anion Gap (5.0-14.0) mmol/L BUN (7-18) mg/dL Creatinine (0.6-1.0) mg/dL Est Cr Clr Drug Dosing mL/min Estimated GFR (MDRD) (>60) Glucose (74-106) mg/dL POC Glucose 332 H 277 H (74-106) MG/DL Lactic Acid (0.4-2.0) mmol/L Calcium (8.5-10.1) mg/dL Total Bilirubin (0.2-1.0) mg/dL AST (15-37) U/L ALT (12-78) U/L Alkaline Phosphatase (46-116) U/L Troponin I (0.000-0.056) ng/mL C-Reactive Protein (0.0-0.3) mg/dL Total Protein (6.4-8.2) g/dL Albumin (3.4-5.0) g/dL Globulin (2.3-3.5) g/dL Albumin/Globulin Ratio (1.2-2.2) Urine Color (YELLOW) Urine Appearance (CLEAR) Urine pH (5.0-8.0) Ur Specific [place] (1.008-1.030) Urine Protein (NEGATIVE) mg/dL Urine Glucose (UA) (NEGATIVE) mg/dL Urine Ketones (NEGATIVE) mg/dL Urine Occult Blood (NEGATIVE) Urine Nitrite (NEGATIVE) Urine Bilirubin (NEGATIVE) Urine Urobilinogen (0.2-1.0) EU/dL Ur Leukocyte Esterase (NEGATIVE) Urine RBC (0-5) Urine WBC (0-5) Ur Epithelial Cells Amorphous Sediment Urine Bacteria Urine Mucus Urine Opiates Screen (NEGATIVE) Ur Oxycodone Screen (NEGATIVE) Urine Methadone Screen (NEGATIVE) Ur Propoxyphene Screen (NEGATIVE) Ur Barbiturates Screen (NEGATIVE) Ur Tricyclics Screen (NEGATIVE) Ur Phencyclidine Scrn (NEGATIVE) Ur Amphetamine Screen (NEGATIVE) U Methamphetamines Scrn (NEGATIVE) Urine MDMA Screen (NEGATIVE) U Benzodiazepines Scrn (NEGATIVE) U Cocaine Metab Screen (NEGATIVE) U Marijuana (THC) Screen (NEGATIVE) Med Orders - Current: Current Medications Acetaminophen (Tylenol) 650 mg PO Q4H PRN PRN Reason: Pain (Mild 1-3)/fever Last Admin: 02/25/20 09:47 Dose: 650 mg Documented by: Albuterol (Proventil Neb Soln) 2.5 mg NEB Q4H PRN PRN Reason: Shortness Of Breath/wheezing Bisacodyl (Dulcolax) 5 mg PO DAILY PRN PRN Reason: Constipation Docusate Sodium (Colace) 100 mg PO BID PRN PRN Reason: Constipation Duloxetine HCl (Cymbalta) 60 mg PO BEDTIME [facility] Enoxaparin Sodium (Lovenox) 40 mg SUBCUT DAILY [facility] Last Admin: 02/25/20 09:47 Dose: 40 mg Documented by: Fluoxetine HCl (Prozac) 20 mg PO DAILY [facility] Last Admin: 02/25/20 09:47 Dose: 20 mg Documented by: Glipizide (Glucotrol Xl) 10 mg PO DAILY [facility] Last Admin: 02/25/20 09:47 Dose: 10 mg Documented by: Ciprofloxacin/Dextrose 400 mg/ (Premix) 200 mls @ 200 mls/hr IV Q12H [facility] Sodium Chloride (Normal Saline) 1,000 mls @ 75 mls/hr IV ASDIRECTED [facility] Insulin Human Lispro (Humalog) 0 unit SUBCUT QIDACANDBED [facility]; Protocol Lorazepam (Ativan) 1 mg IV Q6H PRN PRN Reason: Nausea/Vomiting Losartan Potassium (Cozaar) 100 mg PO DAILY [facility] Last Admin: 02/25/20 09:47 Dose: 100 mg Documented by: Morphine Sulfate (Morphine) 2 mg IVPUSH Q2H PRN PRN Reason: Pain (severe 7-10) Ondansetron HCl (Zofran Odt) 4 mg PO Q6H PRN PRN Reason: Nausea able to take PO Oxycodone HCl (Oxycodone) 5 mg PO Q4H PRN PRN Reason: Pain (moderate 4-6) Pantoprazole Sodium (Protonix) 40 mg PO ACBREAKFAST [facility] Discontinued Medications Sodium Chloride (Normal Saline) 1,000 mls @ 500 mls/hr IV .BOLUS ONE Stop: 02/25/20 03:03 Last Admin: 02/25/20 01:12 Dose: 500 mls/hr Documented by: Norepinephrine Bitartrate 8 mg (/ Dextrose/Water) 258 mls @ 3.87 mls/hr IV TITRATE [facility]; Protocol Norepinephrine Bitartrate 4 mg (/ Dextrose/Water) 250 mls @ 7.5 mls/hr IV TITRATE [facility]; Protocol Last Admin: 02/25/20 01:31 Dose: 2 mcg/min, 7.5 mls/hr Documented by: Ciprofloxacin/Dextrose 400 mg/ (Premix) 200 mls @ 200 mls/hr IV ONETIME ONE Stop: 02/25/20 03:03 Last Admin: 02/25/20 02:19 Dose: 200 mls/hr Documented by: Sodium Chloride (Normal Saline) 1,000 mls @ 125 mls/hr IV ASDIRECTED [facility] Last Admin: 02/25/20 04:07 Dose: 125 mls/hr Documented by: Insulin Human Lispro (Humalog) 0 unit SUBCUT QIDACANDBED [facility]; Protocol Last Admin: 02/25/20 08:08 Dose: 4 units Documented by: Insulin Human Regular (Humulin R) 10 unit IVPUSH ONETIME ONE Stop: 02/25/20 01:29 Last Admin: 02/25/20 01:38 Dose: 10 units Documented by: Iopamidol (Isovue-300 (61%)) 150 ml IV . DIRECTED STA Stop: 02/25/20 00:41 Last Admin: 02/25/20 00:48 Dose: 150 ml Documented by: Pantoprazole Sodium (Protonix Iv) 40 mg IV DAILY@0730 [facility] Last Admin: 02/25/20 08:07 Dose: 40 mg Documented by: Sodium Chloride (Saline Flush) 10 ml FLUSH ASDIRECTED PRN PRN Reason: Keep Vein Open Last Admin: 02/25/20 00:36 Dose: 10 ml Documented by: - Exam Quality Assessment: No: Supplemental Oxygen General: Alert, Oriented, Cooperative, No Acute Distress Lungs: Normal Respiratory Effort Cardiovascular: Regular Rate, Regular Rhythm GI/Abdominal Exam: Soft, Non-Tender, No Distention Back Exam: CVA Tenderness (R). No: Muscle Spasm Extremities: No Pedal Edema. No: Increased Warmth Skin: Warm, Dry Psy/Mental Status: Alert, Normal Affect Sepsis Event Note - Evaluation Sepsis Screening Result: Sepsis Risk - Focused Exam Vital Signs: Vital Signs Temp Pulse Resp BP BP Pulse Ox 02/25/20 11:29 36.9 C 106 H 20 128/63 95 02/25/20 09:47 112/61 02/25/20 07:39 35.5 C L 94 18 112/61 95 02/25/20 03:39 35.9 C L 94 18 103/58 L 95 02/25/20 03:11 85 18 97/57 L 90 L 02/25/20 02:56 87 18 100/58 L 91 L 02/25/20 02:41 87 19 104/61 93 L 02/25/20 02:30 90 20 110/63 93 L 02/25/20 02:11 91 16 97/55 L 96 02/25/20 01:56 96 16 123/67 98 02/25/20 01:41 35.0 C L 88 18 125/71 98 02/25/20 00:58 35.6 C L 82 15 97/58 L 95 02/25/20 00:42 83 18 85/51 L 96 02/25/20 00:29 85 19 90/54 L 98 02/25/20 00:14 35.7 C L 88 22 H 80/51 L 98 02/25/20 00:09 35.7 C L 92 79/46 L 98 02/25/20 00:05 93 15 79/46 L 98 - Problem List Review Problem List Initiated/Reviewed/Updated: Yes - My Orders Last 24 Hours: My Active Orders 02/25/20 11:00 Insulin Lispro [HumaLOG] See Protocol SUBCUT QIDACANDBED 02/25/20 12:00 Discontinue Telemetry Monitoring [Cardiac Monitoring Discontinue] [RC] Click to Edit 02/25/20 12:00 Sodium Chloride 0.9% [Normal Saline] 1,000 ml IV ASDIRECTED 02/26/20 05:00 BASIC METABOLIC PANEL,BMP [CHEM] Timed CBC W/O DIFF,HEMOGRAM [HEME] Timed (1) 02/26/20 07:30 Pantoprazole [ProTONIX] 40 mg PO ACBREAKFAST - Plan Plan:: ASSESSMENT / PLAN- Right pyelonephritis with sepsis-sepsis has improved with IV fluids. Vitals are more stable and clinically improving. Cultures are pending. Tolerating current antibiotics. -Continue IV fluids until appetite improves. -Ciprofloxacin -Pain control -Follow-up cultures Diabetes Type 2 with hyperglycemia-blood sugars still moderately elevated but are little better. -consistent carb diet -Novolog insulin per medium dose sliding scale coverage -blood glucose monitoring before meals and at bedtime Hyponatremia-secondary to dehydration and is improving but not normal yet. -IV fluids -BMP in am Maintenance issues -Nutrition: consistent carb diet -DVT: Lovenox 40 mg sub cut -GI; PPI Disposition: home Daniel Robertson MD
[2020-02-25] MEDS: Sodium Chloride 0.9% 1,000 ML IV SCH ×2 (12:22→20:52)
[2020-02-25] MEDS: Insulin Lispro 100 Unit/ML 3 ML KwikPen SUBCUT SCH ×3 (12:34→21:00)
[2020-02-25] MEDS: Ciprofloxacin in D5W 400 MG in Premix Bag 1 BAG IV SCH ×2 (14:49)
[2020-02-25] MEDS: DULoxetine 30 MG Cap PO SCH (21:00)
[2020-02-26] MEDS: Ciprofloxacin in D5W 400 MG in Premix Bag 1 BAG IV SCH ×4 (02:19→14:49)
[2020-02-26] MEDS: Pantoprazole 40 MG Tab.CR PO SCH (07:52)
[2020-02-26] MEDS: glipiZIDE 5 MG Tab.ER PO SCH (08:40)
[2020-02-26] MEDS: Enoxaparin 40 MG/0.4 ML Syringe SUBCUT SCH (08:41)
[2020-02-26] MEDS: FLUoxetine 20 MG Cap PO SCH (08:41)
[2020-02-26] MEDS ORDERED: Potassium Chloride 20 MEQ Tab.ER PO ONE (08:45)
[2020-02-26] MEDS: Insulin Lispro 100 Unit/ML 3 ML KwikPen SUBCUT SCH ×4 (09:19→21:18)
[2020-02-26] MEDS: Sodium Chloride 0.9% 1,000 ML IV SCH (10:20)
--- NOTE | 2020-02-26 10:37 | PCM.PN ---
- General Info Date of Service: 02/26/20 Subjective Update: No acute events overnight. She still has mild tachycardia but this seems to be slowly improving. No fevers. Flank pain persists but has improved compared to yesterday. Appetite and strength are better today. Blood cultures have been negative. Blood sugars are slowly trending down with blood sugars in the low 100s today. Kidney function slowly improving. Overall she is doing fairly well. Functional Status: Reports: Pain Controlled, Tolerating Diet - Review of Systems General: Denies: Fever Genitourinary: Reports: Flank Pain - Patient Data Vitals - Most Recent: Last Vital Signs Temp 37.2 C 02/26/20 07:38 Pulse 112 H 02/26/20 07:38 Resp 18 02/26/20 07:38 BP 133/72 02/26/20 07:38 Pulse Ox 98 02/26/20 07:38 Weight - Most Recent: 98.883 kg I&O - Last 24 Hours: Intake & Output 02/25/20 02/26/20 02/26/20 22:59 06:59 14:59 Intake Total 3883 1930 Output Total 2525 1350 1100 Balance 1358 580 -1100 Lab Results Last 24 Hours: Laboratory Results - last 24 hr 02/25/20 02/25/20 02/25/20 Range/Units 11:30 16:52 21:00 WBC (4.5-11.0) K/uL RBC (3.30-5.50) M/uL Hgb (12.0-15.0) g/dL Hct (36.0-48.0) % MCV (80-98) fL MCH (27-31) pg MCHC (32-36) % Plt Count (150-400) K/uL Sodium (140-148) mmol/L Potassium (3.6-5.2) mmol/L Chloride (100-108) mmol/L Carbon Dioxide (21-32) mmol/L Anion Gap (5.0-14.0) mmol/L BUN (7-18) mg/dL Creatinine (0.6-1.0) mg/dL Est Cr Clr Drug Dosing mL/min Estimated GFR (MDRD) (>60) Glucose (74-106) mg/dL POC Glucose 277 H 274 H 264 H (74-106) MG/DL Calcium (8.5-10.1) mg/dL 02/26/20 02/26/20 02/26/20 Range/Units 05:39 05:39 07:30 WBC 12.4 H (4.5-11.0) K/uL RBC 3.97 (3.30-5.50) M/uL Hgb 11.7 L (12.0-15.0) g/dL Hct 33.7 L (36.0-48.0) % MCV 85 (80-98) fL MCH 30 (27-31) pg MCHC 35 (32-36) % Plt Count 251 (150-400) K/uL Sodium 132 L (140-148) mmol/L Potassium 3.3 L (3.6-5.2) mmol/L Chloride 103 (100-108) mmol/L Carbon Dioxide 19 L (21-32) mmol/L Anion Gap 13.3 (5.0-14.0) mmol/L BUN 17 (7-18) mg/dL Creatinine 1.1 H (0.6-1.0) mg/dL Est Cr Clr Drug Dosing 53.70 mL/min Estimated GFR (MDRD) 50 L (>60) Glucose 264 H (74-106) mg/dL POC Glucose 213 H (74-106) MG/DL Calcium 8.5 (8.5-10.1) mg/dL [place] Results Last 24 Hours: Microbiology 02/25/20 01:30 Aerobic Blood Culture - Preliminary Blood - Venous NO GROWTH AFTER 1 DAY Anaerobic Blood Culture - Preliminary NO GROWTH AFTER 1 DAY Med Orders - Current: Current Medications Acetaminophen (Tylenol) 650 mg PO Q4H PRN PRN Reason: Pain (Mild 1-3)/fever Last Admin: 02/25/20 17:14 Dose: 650 mg Documented by: Albuterol (Proventil Neb Soln) 2.5 mg NEB Q4H PRN PRN Reason: Shortness Of Breath/wheezing Bisacodyl (Dulcolax) 5 mg PO DAILY PRN PRN Reason: Constipation Docusate Sodium (Colace) 100 mg PO BID PRN PRN Reason: Constipation Duloxetine HCl (Cymbalta) 60 mg PO BEDTIME [facility] Last Admin: 02/25/20 21:00 Dose: 60 mg Documented by: Enoxaparin Sodium (Lovenox) 40 mg SUBCUT DAILY [facility] Last Admin: 02/26/20 08:41 Dose: 40 mg Documented by: Fluoxetine HCl (Prozac) 20 mg PO DAILY [facility] Last Admin: 02/26/20 08:41 Dose: 20 mg Documented by: Glipizide (Glucotrol Xl) 10 mg PO DAILY [facility] Last Admin: 02/26/20 08:40 Dose: 10 mg Documented by: Ciprofloxacin/Dextrose 400 mg/ (Premix) 200 mls @ 200 mls/hr IV Q12H [facility] Last Admin: 02/26/20 02:19 Dose: 200 mls/hr Documented by: Insulin Human Lispro (Humalog) 0 unit SUBCUT QIDACANDBED [facility]; Protocol Last Admin: 02/26/20 09:19 Dose: 4 units Documented by: Lorazepam (Ativan) 1 mg IV Q6H PRN PRN Reason: Nausea/Vomiting Losartan Potassium (Cozaar) 100 mg PO DAILY [facility] Last Admin: 02/25/20 09:47 Dose: 100 mg Documented by: Morphine Sulfate (Morphine) 2 mg IVPUSH Q2H PRN PRN Reason: Pain (severe 7-10) Ondansetron HCl (Zofran Odt) 4 mg PO Q6H PRN PRN Reason: Nausea able to take PO Oxycodone HCl (Oxycodone) 5 mg PO Q4H PRN PRN Reason: Pain (moderate 4-6) Last Admin: 02/26/20 02:27 Dose: 5 mg Documented by: Pantoprazole Sodium (Protonix) 40 mg PO ACBREAKFAST [facility] Last Admin: 02/26/20 07:52 Dose: 40 mg Documented by: Discontinued Medications Sodium Chloride (Normal Saline) 1,000 mls @ 500 mls/hr IV .BOLUS ONE Stop: 02/25/20 03:03 Last Admin: 02/25/20 01:12 Dose: 500 mls/hr Documented by: Norepinephrine Bitartrate 8 mg (/ Dextrose/Water) 258 mls @ 3.87 mls/hr IV TITRATE [facility]; Protocol Norepinephrine Bitartrate 4 mg (/ Dextrose/Water) 250 mls @ 7.5 mls/hr IV TITRATE [facility]; Protocol Last Admin: 02/25/20 01:31 Dose: 2 mcg/min, 7.5 mls/hr Documented by: Ciprofloxacin/Dextrose 400 mg/ (Premix) 200 mls @ 200 mls/hr IV ONETIME ONE Stop: 02/25/20 03:03 Last Admin: 02/25/20 02:19 Dose: 200 mls/hr Documented by: Sodium Chloride (Normal Saline) 1,000 mls @ 125 mls/hr IV ASDIRECTED [facility] Last Admin: 02/25/20 04:07 Dose: 125 mls/hr Documented by: Sodium Chloride (Normal Saline) 1,000 mls @ 75 mls/hr IV ASDIRECTED [facility] Last Admin: 02/26/20 10:20 Dose: 75 mls/hr Documented by: Insulin Human Lispro (Humalog) 0 unit SUBCUT QIDACANDBED [facility]; Protocol Last Admin: 02/25/20 08:08 Dose: 4 units Documented by: Insulin Human Regular (Humulin R) 10 unit IVPUSH ONETIME ONE Stop: 02/25/20 01:29 Last Admin: 02/25/20 01:38 Dose: 10 units Documented by: Iopamidol (Isovue-300 (61%)) 150 ml IV . DIRECTED STA Stop: 02/25/20 00:41 Last Admin: 02/25/20 00:48 Dose: 150 ml Documented by: Pantoprazole Sodium (Protonix Iv) 40 mg IV DAILY@0730 [facility] Last Admin: 02/25/20 08:07 Dose: 40 mg Documented by: Potassium Chloride (Klor-Con M20) 40 meq PO ONETIME ONE Stop: 02/26/20 08:46 Last Admin: 02/26/20 09:25 Dose: 40 meq Documented by: Sodium Chloride (Saline Flush) 10 ml FLUSH ASDIRECTED PRN PRN Reason: Keep Vein Open Last Admin: 02/25/20 00:36 Dose: 10 ml Documented by: - Exam Quality Assessment: No: Supplemental Oxygen General: Alert, Oriented, Cooperative, No Acute Distress Lungs: Normal Respiratory Effort Cardiovascular: Regular Rate, Regular Rhythm GI/Abdominal Exam: Soft, No Distention Extremities: No Pedal Edema Skin: Warm, Dry Psy/Mental Status: Alert, Normal Affect Sepsis Event Note - Evaluation Sepsis Screening Result: Sepsis Risk - Focused Exam Vital Signs: Vital Signs Temp Pulse Resp BP Pulse Ox Pulse Ox 02/26/20 07:38 37.2 C 112 H 18 133/72 98 02/26/20 03:39 97 02/26/20 02:28 37.7 C 110 H 18 138/74 97 02/25/20 22:44 37.3 C 105 H 16 117/57 L 95 - Problem List Review Problem List Initiated/Reviewed/Updated: Yes - My Orders Last 24 Hours: My Active Orders 02/25/20 11:00 Insulin Lispro [HumaLOG] See Protocol SUBCUT QIDACANDBED 02/25/20 12:00 Discontinue Telemetry Monitoring [Cardiac Monitoring Discontinue] [RC] Click to Edit Sodium Chloride 0.9% [Normal Saline] 1,000 ml IV ASDIRECTED 02/26/20 07:00 POC Glucose [Blood Glucose Check, Bedside] [RC] QIDACANDBED 02/26/20 07:30 Pantoprazole [ProTONIX] 40 mg PO ACBREAKFAST 02/26/20 10:35 Convert IV to Saline Lock [OM.PC] Routine 02/26/20 11:30 GLUCOSE POC LAB TO COLLECT JPM [POC] QIDACANDBED 02/26/20 16:30 GLUCOSE POC LAB TO COLLECT JPM [POC] QIDACANDBED metFORMIN [Glucophage] 1,000 mg PO BIDAC 02/26/20 21:00 GLUCOSE POC LAB TO COLLECT JPM [POC] QIDACANDBED 02/27/20 05:00 BASIC METABOLIC PANEL,BMP [CHEM] Timed CBC W/O DIFF,HEMOGRAM [HEME] Timed (1) 02/27/20 07:30 GLUCOSE POC LAB TO COLLECT JPM [POC] QIDACANDBED 02/27/20 09:00 Aspirin [Halfprin] 81 mg PO DAILY 02/27/20 11:30 GLUCOSE POC LAB TO COLLECT JPM [POC] QIDACANDBED 02/27/20 16:30 GLUCOSE POC LAB TO COLLECT JPM [POC] QIDACANDBED 02/27/20 21:00 GLUCOSE POC LAB TO COLLECT JPM [POC] QIDACANDBED 02/28/20 07:30 GLUCOSE POC LAB TO COLLECT JPM [POC] QIDACANDBED 02/28/20 11:30 GLUCOSE POC LAB TO COLLECT JPM [POC] QIDACANDBED 02/28/20 16:30 GLUCOSE POC LAB TO COLLECT JPM [POC] QIDACANDBED 02/28/20 21:00 GLUCOSE POC LAB TO COLLECT JPM [POC] QIDACANDBED - Plan Plan:: ASSESSMENT / PLAN- Right pyelonephritis with sepsis-sepsis has resolved. Still a little bit tachycardic but otherwise steadily improving. Blood cultures are negative. Tolerating current antibiotics. -Saline lock IV -Continue IV ciprofloxacin today, anticipate transition to oral medications tomorrow -Pain control -Follow-up cultures Diabetes Type 2 with hyperglycemia-blood sugars have steadily improved. -consistent carb diet -Novolog insulin per medium dose sliding scale coverage -blood glucose monitoring before meals and at bedtime Hyponatremia-secondary to dehydration and has steadily improved. -Saline lock IV -BMP in am Maintenance issues -Nutrition: consistent carb diet -DVT: Lovenox 40 mg sub cut -GI; PPI Disposition: I anticipate discharge home, possibly tomorrow if stable overnight Daniel Robertson MD
[2020-02-26] MEDS: metFORMIN 500 MG Tab PO SCH (17:05)
[2020-02-26] MEDS: Acetaminophen 325 MG Tab PO PRN (19:41)
[2020-02-26] MEDS: DULoxetine 30 MG Cap PO SCH (21:19)
[2020-02-27] MEDS: Ciprofloxacin in D5W 400 MG in Premix Bag 1 BAG IV SCH ×2 (02:03)
[2020-02-27] MEDS: Acetaminophen 325 MG Tab PO PRN (03:28)
[2020-02-27] MEDS: metFORMIN 500 MG Tab PO SCH (07:47)
[2020-02-27] MEDS: Pantoprazole 40 MG Tab.CR PO SCH (07:47)
[2020-02-27] MEDS: Insulin Lispro 100 Unit/ML 3 ML KwikPen SUBCUT SCH (07:48)
[2020-02-27] MEDS: FLUoxetine 20 MG Cap PO SCH (08:54)
[2020-02-27] MEDS: glipiZIDE 5 MG Tab.ER PO SCH (08:54)
[2020-02-27] MEDS: Enoxaparin 40 MG/0.4 ML Syringe SUBCUT SCH (08:54)
[2020-02-27] MEDS ORDERED: Potassium Chloride 20 MEQ Tab.ER PO ONE (09:00)
[2020-02-27] MEDS ORDERED: Aspirin 81 MG Tab.EC PO SCH (09:00)
--- NOTE | 2020-02-27 09:01 | PCM.DCSUM1 ---
Discharge Summary - Hospital Course Brief History: 64-year-old female with history of type 2 diabetes mellitus who presented with weakness and right flank pain. She was admitted for management of right-sided pyelonephritis with sepsis. Diagnosis: Stroke: No - Discharge Data Discharge Date: 02/27/20 Discharge Disposition: Home, Self-Care 01 Condition: Good - Referral to Home Health Primary Care Physician: PCP None - Discharge Diagnosis/Problem(s) (1) Pyelonephritis SNOMED Code(s): 76238747 ICD Code: N12 - TUBULO-INTERSTITIAL NEPHRITIS, NOT SPCF ACUTE OR CHRONIC Status: Acute Priority: High (2) Sepsis SNOMED Code(s): 06655447 ICD Code: A41.9 - SEPSIS, UNSPECIFIED ORGANISM Status: Acute Qualifiers: Sepsis type: sepsis due to unspecified organism Sepsis acute organ dysfunction status: without acute organ dysfunction Qualified Code(s): A41.9 - Sepsis, unspecified organism (3) Hypokalemia SNOMED Code(s): 37797177 ICD Code: E87.6 - HYPOKALEMIA Status: Acute (4) Diabetes mellitus with hyperglycemia SNOMED Code(s): 94181277, 915153831 ICD Code: E11.65 - TYPE 2 DIABETES MELLITUS WITH HYPERGLYCEMIA Status: Acute Priority: High Qualifiers: Diabetes mellitus type: type 2 Diabetes mellitus senior living insulin use: without senior living use Qualified Code(s): E11.65 - Type 2 diabetes mellitus with hyperglycemia - Patient Summary/Data Hospital Course: Yandy presented to the emergency room with weakness after a fall at home. She was currently being treated for urinary tract infection and recently had her antibiotics changed because of resistance noted on a culture. Work-up in the emergency room revealed concern for right-sided pyelonephritis as well as sepsis. She received aggressive IV fluids and did require IV norepinephrine for a very short while. She was started on IV ciprofloxacin based on outside urine culture. Blood cultures were obtained. She had steady improvement over the course of the next couple of days. Her sepsis resolved fairly quickly though she did remain mildly tachycardic. Her heart rate did trend down and had normalized by the time of discharge. Initially she was quite hyperglycemic but this has improved with additional supplemental insulin provided during the hospital stay. Her pain has steadily improved and is currently controlled using only [id number] medications. She has not had any fevers. Repeat cultures have all been negative. Appetite has improved. Strength is improving. She did have mild renal insufficiency and this has normalized during the hospital stay. She feels well enough to go home and I believe she is safe for outpatient management. She does have a prescription of ciprofloxacin available at home and will complete the course as prescribed by her primary care provider. She has follow-up scheduled in 2 days. - Patient Instructions Diet: Diabetic Diet Activity: As Tolerated Showering/Bathing: May Shower Notify Provider of: Fever, Increased Pain, Nausea and/or Vomiting Other/Special Instructions: 1. You were in the hospital for management of right- sided pyelonephritis. Your condition has been improving with IV fluids and antibiotic therapy. I do recommend that you complete the course of ciprofloxacin prescribed by your primary care provider. Your first dose outside of the hospital will be due tonight. You may increase your activity as tolerated. 2. Continue your usual home medications as previously prescribed. 3. Follow up as scheduled with your primary care provider on Friday. - Discharge Plan *PRESCRIPTION DRUG MONITORING PROGRAM REVIEWED*: Not Applicable *COPY OF PRESCRIPTION DRUG MONITORING REPORT IN PATIENT KISHAN: Not Applicable Home Medications: Home Meds Amitriptyline HCl 50 mg PO BEDTIME 07/04/13 [History] DULoxetine HCl [Cymbalta] 60 mg PO BEDTIME 07/04/13 [History] Meloxicam 15 mg PO DAILY 07/04/13 [History] metFORMIN HCl [Metformin HCl] 1,000 mg PO BID 07/04/13 [History] Aspirin [Adult Low Dose Aspirin EC] 81 mg PO DAILY 02/25/20 [History] Dulaglutide [Trulicity] 0.5 ml SQ WEEKLY 02/25/20 [History] FLUoxetine HCl [Prozac] 20 mg PO DAILY 02/25/20 [History] Famotidine 20 mg PO DAILY 02/25/20 [History] Losartan Potassium 100 mg PO DAILY 02/25/20 [History] Simvastatin [Zocor] 10 mg PO BEDTIME 02/25/20 [History] glipiZIDE [Glipizide ER] 10 mg PO DAILY 02/25/20 [History] Oxygen Therapy Mode: Room Air Patient Handouts: Pyelonephritis, Adult Referrals: Mary Flood NP [Ordering Only Provider] - 02/29/20 1:00 pm (Arrive 15 minutes early to register for your appointment.) - Discharge Summary/Plan Comment DC Time >30 min.: No - Patient Data Vitals - Most Recent: Last Vital Signs Temp 36.7 C 02/27/20 07:42 Pulse 97 02/27/20 07:42 Resp 18 02/27/20 07:42 BP 149/89 H 02/27/20 07:42 Pulse Ox 97 02/27/20 07:42 Weight - Most Recent: 98.883 kg I&O - Last 24 hours: Intake & Output 02/26/20 02/27/20 02/27/20 22:59 06:59 14:59 Intake Total 2650 900 Output Total 2250 2600 Balance 400 -1700 Lab Results - Last 24 hrs: Laboratory Results - last 24 hr 02/26/20 02/26/20 02/26/20 Range/Units 07:30 11:26 16:30 WBC (4.5-11.0) K/uL RBC (3.30-5.50) M/uL Hgb (12.0-15.0) g/dL Hct (36.0-48.0) % MCV (80-98) fL MCH (27-31) pg MCHC (32-36) % Plt Count (150-400) K/uL Sodium (140-148) mmol/L Potassium (3.6-5.2) mmol/L Chloride (100-108) mmol/L Carbon Dioxide (21-32) mmol/L Anion Gap (5.0-14.0) mmol/L BUN (7-18) mg/dL Creatinine (0.6-1.0) mg/dL Est Cr Clr Drug Dosing mL/min Estimated GFR (MDRD) (>60) Glucose (74-106) mg/dL POC Glucose 213 H 208 H 212 H (74-106) MG/DL Calcium (8.5-10.1) mg/dL 02/26/20 02/27/20 02/27/20 Range/Units 21:05 04:55 04:55 WBC 10.0 (4.5-11.0) K/uL RBC 3.80 (3.30-5.50) M/uL Hgb 10.6 L (12.0-15.0) g/dL Hct 32.4 L (36.0-48.0) % MCV 85 (80-98) fL MCH 28 (27-31) pg MCHC 33 (32-36) % Plt Count 301 (150-400) K/uL Sodium 134 L (140-148) mmol/L Potassium 3.3 L (3.6-5.2) mmol/L Chloride 102 (100-108) mmol/L Carbon Dioxide 21 (21-32) mmol/L Anion Gap 14.3 H (5.0-14.0) mmol/L BUN 13 (7-18) mg/dL Creatinine 1.0 (0.6-1.0) mg/dL Est Cr Clr Drug Dosing 59.07 mL/min Estimated GFR (MDRD) 56 L (>60) Glucose 272 H (74-106) mg/dL POC Glucose 249 H (74-106) MG/DL Calcium 8.6 (8.5-10.1) mg/dL 02/27/20 Range/Units 07:30 WBC (4.5-11.0) K/uL RBC (3.30-5.50) M/uL Hgb (12.0-15.0) g/dL Hct (36.0-48.0) % MCV (80-98) fL MCH (27-31) pg MCHC (32-36) % Plt Count (150-400) K/uL Sodium (140-148) mmol/L Potassium (3.6-5.2) mmol/L Chloride (100-108) mmol/L Carbon Dioxide (21-32) mmol/L Anion Gap (5.0-14.0) mmol/L BUN (7-18) mg/dL Creatinine (0.6-1.0) mg/dL Est Cr Clr Drug Dosing mL/min Estimated GFR (MDRD) (>60) Glucose (74-106) mg/dL POC Glucose 232 H (74-106) MG/DL Calcium (8.5-10.1) mg/dL SHANNAN Results - Last 24 hrs: Microbiology 02/25/20 01:30 Aerobic Blood Culture - Preliminary Blood - Venous NO GROWTH AFTER 2 DAYS Anaerobic Blood Culture - Preliminary NO GROWTH AFTER 2 DAYS Med Orders - Current: Current Medications Acetaminophen (Tylenol) 650 mg PO Q4H PRN PRN Reason: Pain (Mild 1-3)/fever Last Admin: 02/27/20 03:28 Dose: 650 mg Documented by: Albuterol (Proventil Neb Soln) 2.5 mg NEB Q4H PRN PRN Reason: Shortness Of Breath/wheezing Aspirin (Halfprin) 81 mg PO DAILY [facility] Last Admin: 02/27/20 08:54 Dose: 81 mg Documented by: Bisacodyl (Dulcolax) 5 mg PO DAILY PRN PRN Reason: Constipation Docusate Sodium (Colace) 100 mg PO BID PRN PRN Reason: Constipation Duloxetine HCl (Cymbalta) 60 mg PO BEDTIME [facility] Last Admin: 02/26/20 21:19 Dose: 60 mg Documented by: Enoxaparin Sodium (Lovenox) 40 mg SUBCUT DAILY [facility] Last Admin: 02/27/20 08:54 Dose: Not Given Documented by: Fluoxetine HCl (Prozac) 20 mg PO DAILY [facility] Last Admin: 02/27/20 08:54 Dose: 20 mg Documented by: Glipizide (Glucotrol Xl) 10 mg PO DAILY [facility] Last Admin: 02/27/20 08:54 Dose: 10 mg Documented by: Ciprofloxacin/Dextrose 400 mg/ (Premix) 200 mls @ 200 mls/hr IV Q12H [facility] Last Admin: 02/27/20 02:03 Dose: 200 mls/hr Documented by: Insulin Human Lispro (Humalog) 0 unit SUBCUT QIDACANDBED [facility]; Protocol Last Admin: 02/27/20 07:48 Dose: 4 units Documented by: Lorazepam (Ativan) 1 mg IV Q6H PRN PRN Reason: Nausea/Vomiting Losartan Potassium (Cozaar) 100 mg PO DAILY [facility] Last Admin: 02/25/20 09:47 Dose: 100 mg Documented by: Metformin HCl (Glucophage) 1,000 mg PO BIDMEALS [facility] Last Admin: 02/27/20 07:47 Dose: 1,000 mg Documented by: Morphine Sulfate (Morphine) 2 mg IVPUSH Q2H PRN PRN Reason: Pain (severe 7-10) Ondansetron HCl (Zofran Odt) 4 mg PO Q6H PRN PRN Reason: Nausea able to take PO Oxycodone HCl (Oxycodone) 5 mg PO Q4H PRN PRN Reason: Pain (moderate 4-6) Last Admin: 02/26/20 02:27 Dose: 5 mg Documented by: Pantoprazole Sodium (Protonix) 40 mg PO ACBREAKFAST ANAND Last Admin: 02/27/20 07:47 Dose: 40 mg Documented by: Potassium Chloride (Klor-Con M20) 40 meq PO ONETIME ONE Stop: 02/27/20 09:01 Discontinued Medications Sodium Chloride (Normal Saline) 1,000 mls @ 500 mls/hr IV .BOLUS ONE Stop: 02/25/20 03:03 Last Admin: 02/25/20 01:12 Dose: 500 mls/hr Documented by: Norepinephrine Bitartrate 8 mg (/ Dextrose/Water) 258 mls @ 3.87 mls/hr IV TITRATE ANAND; Protocol Norepinephrine Bitartrate 4 mg (/ Dextrose/Water) 250 mls @ 7.5 mls/hr IV TITRATE ANAND; Protocol Last Admin: 02/25/20 01:31 Dose: 2 mcg/min, 7.5 mls/hr Documented by: Ciprofloxacin/Dextrose 400 mg/ (Premix) 200 mls @ 200 mls/hr IV ONETIME ONE Stop: 02/25/20 03:03 Last Admin: 02/25/20 02:19 Dose: 200 mls/hr Documented by: Sodium Chloride (Normal Saline) 1,000 mls @ 125 mls/hr IV ASDIRECTED [facility] Last Admin: 02/25/20 04:07 Dose: 125 mls/hr Documented by: Sodium Chloride (Normal Saline) 1,000 mls @ 75 mls/hr IV ASDIRECTED [facility] Last Admin: 02/26/20 10:20 Dose: 75 mls/hr Documented by: Insulin Human Lispro (Humalog) 0 unit SUBCUT QIDACANDBED [facility]; Protocol Last Admin: 02/25/20 08:08 Dose: 4 units Documented by: Insulin Human Regular (Humulin R) 10 unit IVPUSH ONETIME ONE Stop: 02/25/20 01:29 Last Admin: 02/25/20 01:38 Dose: 10 units Documented by: Iopamidol (Isovue-300 (61%)) 150 ml IV . DIRECTED STA Stop: 02/25/20 00:41 Last Admin: 02/25/20 00:48 Dose: 150 ml Documented by: Pantoprazole Sodium (Protonix Iv) 40 mg IV DAILY@0730 [facility] Last Admin: 02/25/20 08:07 Dose: 40 mg Documented by: Potassium Chloride (Klor-Con M20) 40 meq PO ONETIME ONE Stop: 02/26/20 08:46 Last Admin: 02/26/20 09:25 Dose: 40 meq Documented by: Sodium Chloride (Saline Flush) 10 ml FLUSH ASDIRECTED PRN PRN Reason: Keep Vein Open Last Admin: 02/25/20 00:36 Dose: 10 ml Documented by:
== END 2020-02-27 10:35 | disposition home or self-care (01) | DRG 872 ==
LOC: JP.ED 00:02 → JP.MS 02:54
PROVIDERS: ADMIT Internal Medicine; ATTEND Internal Medicine
DX: A41.9 Sepsis, unspecified organism (principal); N10 Acute pyelonephritis; E87.1 Hypo-osmolality and hyponatremia; E87.6 Hypokalemia; E11.65 Type 2 diabetes mellitus with hyperglycemia; N28.9 Disorder of kidney and ureter, unspecified; I10 Essential (primary) hypertension; E86.0 Dehydration; Z79.82 Long term (current) use of aspirin; Z79.899 Other long term (current) drug therapy; Z79.84 Long term (current) use of oral hypoglycemic drugs; Z88.2 Allergy status to sulfonamides
CPT/HCPCS: 36415; 71260; 74177; 80048; 80053; 80305-QW; 81001; 82962; 83605; 84484; 85025; 85027; 86140; 87040; 93005; 93010; 96365; 96367; 99222-AI; 99232; 99238; 99285; 99285-25; A9270-GY; C9113; J0744; J1650; J1815; J1815-GY; J7030; J7060; Q9967

== ENCOUNTER 2022-09-05 07:39 | Day surgery (SDC) | payer OTHER, MEDICARE ==
[~2022-09-05 07:39] MED LIST: Sodium Chloride 0.9% 10 ML Syringe FLUSH PRN
== END 2022-09-05 09:15 | disposition home or self-care (01) ==
LOC: JP.SDS 07:39
PROVIDERS: ATTEND Ophthalmology
DX: E11.36 Type 2 diabetes mellitus with diabetic cataract (principal); H26.9 Unspecified cataract; I10 Essential (primary) hypertension; E66.9 Obesity, unspecified; K21.9 Gastro-esophageal reflux disease without esophagitis; Z88.2 Allergy status to sulfonamides
CPT/HCPCS: 66984; J3490

== ENCOUNTER 2022-09-26 07:55 | Day surgery (SDC) | payer MEDICARE, OTHER ==
[2022-09-26] MEDS ORDERED: Sodium Chloride 0.9% 10 ML Syringe FLUSH PRN (08:30)
== END 2022-09-26 09:25 | disposition home or self-care (01) ==
LOC: JP.SDS 07:55
PROVIDERS: ATTEND Ophthalmology
DX: H26.9 Unspecified cataract (principal)
CPT/HCPCS: 66984; J3490

== ENCOUNTER 2025-04-04 15:43 | Emergency (ER) | payer BC, MEDICARE, OTHER | END 2025-04-04 16:55 | disposition home or self-care (01) | LOC: JP.ED 15:43 | DX: S60.212A Contusion of left wrist, initial encounter (principal); I10 Essential (primary) hypertension; E78.00 Pure hypercholesterolemia, unspecified; E11.9 Type 2 diabetes mellitus without complications; K21.9 Gastro-esophageal reflux disease without esophagitis; Z88.2 Allergy status to sulfonamides; Z79.899 Other long term (current) drug therapy; Z79.84 Long term (current) use of oral hypoglycemic drugs; X58.XXXA Exposure to other specified factors, initial encounter; Y93.89 Activity, other specified | CPT/HCPCS: 99282; 99283 ==